=== PATIENT | female | born 1960 | race Caucasian/White ===

== ENCOUNTER → 2017-09-25 | Day surgery (SDC) | payer BC, MEDICARE ==
[~2017-09-25] MED LIST: LIDOCAINE 1% INJ-PF (10 MG/ML) 30 ML SDV ONE
--- NOTE | 2017-09-25 14:27 | RADIOLOGY REPORT (SQ) ---
EXAM DESCRIPTION: ARTHRO SHOULDER; FLUORO/NEEDLE PLACEMENT COMPLETED DATE/TIME: 09/25/2017 2:06 pm REASON FOR STUDY: BICEP STRAIN, L ARM/L SHOULDER PAIN S46.112D STRAIN OF MUSC/FASC/TEND LONG HEAD O F BICEPS, LEFT COMPARISON: None. FLUOROSCOPY TIME: 15 seconds 1 images saved to PACS. LIMITATIONS: None. PROCEDURE: Procedure, risks, benefits and alternatives explained to patient who then gave written co nsent. The left shoulder was marked and a time out was called for correct procedure verification. Po sterior entry site marked using fluoroscopic guidance. Shoulder prepped and draped using sterile aditi hnique. Local anesthesia achieved using 1% lidocaine injection. Hypodermic needle introduced into t he joint space under direct fluoroscopic visualization. Non-ionic contrast instilled to confirm intra -articular position. Dilute gadolinium solution then injected. Needle removed and entry site covered with sterile bandage. No immediate complications noted. TECHNIQUE: Digital images acquired during fluoroscopy and stored on PACS. Patient immediately take n to the MR suite for additional imaging. INJECTION LOCATION: Posterior left shoulder. CONTRAST TYPE AND AMOUNT: 1 cc Isovue 300 10 cc Prohance. IMPRESSION: SUCCESSFUL NEEDLE PLACEMENT AND INJECTION FOR LEFT SHOULDER MR ARTHROGRAM USING POSTERIO R APPROACH. COMMENT: Quality ID [id number]: Final reports for procedures using fluoroscopy that document radiation exp osure indices, or exposure time and number of fluorographic images (if radiation exposure indices are not available) TECHNICAL DOCUMENTATION: JOB ID: [id number] [email or web address] All Rights Reserved
--- NOTE | 2017-09-25 15:40 | RADIOLOGY REPORT (SQ) ---
EXAM DESCRIPTION: MRI LT UPPER JOINT WITH COMPLETED DATE/TIME: 09/25/2017 3:08 pm REASON FOR STUDY: BICEP STRAIN, L ARM/L SHOULDER PAIN S46.112D STRAIN OF MUSC/FASC/TEND LONG HEAD O F BICEPS, LEFT COMPARISON: None. TECHNIQUE: Left shoulder images acquired and stored on PACS. Oblique coronal, oblique sagittal, and axial imaging to include fat sensitive sequences as T1, water sensitive sequences as FST2/STIR, and c ontrast sensitive sequences as FST1. LIMITATIONS: Motion. FINDINGS: JOINT DISTENTION: Adequate distention for interpretation. No contrast in the subacromial bursa. BONE MARROW AND CORTEX: Subchondral cyst formation adjacent to the cuff attachment on the humeral hea d. AC JOINT: Type 2.. Mild AC joint arthropathy. GLENOHUMERAL JOINT: Intact. ROTATOR CUFF: Increased T2 signal along the articular surface of the supraspinatus. No full-thicknes s tear. Infraspinatus, teres minor and subscapularis intact. LABRUM AND BICEPS LABRAL COMPLEX: Intact. INFERIOR LABRAL COMPLEX: Intact. ADJACENT SOFT TISSUES: No masses or nodes. OTHER: No other significant finding. IMPRESSION: 1. Some limitations due to motion. No definite labral tear identified. 2. Articular surface partial-thickness tear supraspinatus. TECHNICAL DOCUMENTATION: JOB ID: [id number] [employer]- All Rights Reserved
== END ==
LOC: RAD 13:02
PROVIDERS: ATTEND Physician Assistant
PROC: BP09ZZZ Plain Radiography of Left Shoulder (ICD-10-PCS; principal; 2017-09-25)
DX: S46.112D Strain of muscle, fascia and tendon of long head of biceps, left arm, subsequent encounter (principal)
CPT/HCPCS: 73222; 73040; 77002; A9576; J3490

== ENCOUNTER → 2018-01-15 | Outpatient (CLI) | payer BC, MEDICARE ==
[2018-01-15 10:48] LABS: CHOLESTEROL 162.88 mg/dL (0-200); TRIGLYCERIDES 111 mg/dL (<150)
[2018-01-15 10:59] LABS: DIRECT LDL 70 mg/dL (<100)
[2018-01-15 11:34] LABS: THYROID STIMULATING HORMONE 0.41 uIU/mL (0.47-4.68)
[2018-01-15 18:31] LABS: FREE T4 (FREE THYROXINE) 0.84 ng/dL (0.78-2.19)
== END ==
LOC: OD 09:16
PROVIDERS: ATTEND Internal Medicine Nephrology
DX: E03.9 Hypothyroidism, unspecified (principal); E78.2 Mixed hyperlipidemia; D35.2 Benign neoplasm of pituitary gland
CPT/HCPCS: 36415; 80061; 84146; 84439; 84443

== ENCOUNTER → 2018-01-17 | Outpatient (CLI) | payer BC, MEDICARE ==
--- NOTE | 2018-01-17 12:40 | WOMENS IMAGING REPORT ---
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 LIMITATIONS: None. FINDINGS: LUMBAR SPINE: The bone mineral density (BMD) measured from L1-L4 in the AP projection correlates with a T-score of -0.8, which is normal as defined by the World Health Organization. This is stable compared to 2015 HIP: The bone mineral density (BMD) measured in the left total hip correlates with a T-score of +0.4, whic h is normal as defined by the World Health Organization. This is stable compared to 2015 IMPRESSION: 1. LUMBAR SPINE: Normal 2. HIP: Normal COMMENT: The World Health Organization defines low BMD as follows: T-score: Normal: Greater than -1.0 Osteopenia: Between -1.0 and -2.5 Osteoporosis: Less than -2.5 without fractures Established osteoporosis: Less than -2.5 with fractures In general, you may wish to consider: Diagnosis Treatment Follow-up DEXA Normal BMD Prevention 2-3 years Osteopenia Prevention/Therapy 1-2 years Osteoporosis Therapy Yearly TECHNICAL DOCUMENTATION: JOB ID: [id number] [employer]- All Rights Reserved Reading location - IP/workstation name: [email or web address]
== END ==
LOC: WI 10:17
PROVIDERS: ATTEND Physician Assistant
DX: K50.90 Crohn's disease, unspecified, without complications (principal)
CPT/HCPCS: 77080

== ENCOUNTER 2018-10-21 22:24 | Emergency (ER) | payer MEDICARE, BC ==
[2018-10-22] MEDS ORDERED: ONDANSETRON HCL INJ/PF 4 MG/2 ML SDV IV ONE (00:49)
[2018-10-22] MEDS ORDERED: NORMAL SALINE 1000 ML 1,000 ML IV ONE (00:49)
--- NOTE | 2018-10-22 01:52 | ER Document Report ---
ED General - General Chief Complaint: Nausea/Vomiting/Diarrhea Stated Complaint: SYNCOPE Time Seen by Provider: 10/22/18 00:49 Primary Care Provider: ABDELRAHMAN SIMENTAL MD [Primary Care Provider] - Follow up as needed Notes: Patient is a 58-year-old female with a past medical history of a complete colectomy, Crohn's disease, active on Humira, presents complaining of 24 hours of nausea, vomiting, and diarrhea. The patient is also had an episode in which she went from lying to standing to try to walk to the restroom and lost consciousness. This probably her to come to the emergency department for further assessment. She has history of chronic diarrhea secondary to her colectomy and Crohn's disease but denies any history of vomiting on a regular basis. She has not had fever. Notes that she has had some mild, generalized, intermittent abdominal cramping relieved by vomiting and diarrhea. No known sick contacts. She has not seen her primary care physician regarding today's concerns. TRAVEL OUTSIDE OF THE [place] IN LAST 30 DAYS: No - Related Data Allergies/Adverse Reactions: amitriptyline HCl [From Elavil] Allergy (Severe, Verified 09/29/11 15:33) restless leg bromocriptine mesylate [From Parlodel] Allergy (Severe, Verified 09/29/11 15:33) n and v codeine [Codeine] Allergy (Severe, Verified 09/29/11 15:33) itching diazepam [Diazepam] Allergy (Severe, Verified 09/29/11 15:33) mood changes metaxalone [From Skelaxin] Allergy (Severe, Verified 09/29/11 15:33) itching metoclopramide HCl [From Reglan] Allergy (Severe, Verified 09/29/11 15:33) twitching nabumetone [From Relafen] Allergy (Severe, Verified 09/29/11 15:33) abd pain promethazine HCl [From Phenergan] Allergy (Severe, Verified 09/29/11 15:33) rls sulfamethoxazole [From Septra] Allergy (Severe, Verified 09/29/11 15:33) rash and itching trazodone [Trazodone] Allergy (Severe, Verified 09/29/11 15:33) Nightmares trimethoprim [From Septra] Allergy (Severe, Verified 09/29/11 15:33) rash and itching adhesives Allergy (Severe, Uncoded 09/29/11 15:33) Blisters Past Medical History - General Information source: Patient - Social History Smoking Status: Never Smoker Frequency of alcohol use: None Drug Abuse: None Lives with: Spouse/Significant other Family History: Reviewed & Not Pertinent - Past Medical History Cardiac Medical History: Denies: Hx Coronary Artery Disease, Hx Heart Attack, Hx Hypertension Pulmonary Medical History: Reports: Hx Pneumonia - hx of Denies: Hx Asthma, Hx Bronchitis, Hx COPD Neurological Medical History: Denies: Hx Cerebrovascular Accident, Hx Seizures Musculoskeletal Medical History: Reports Hx Arthritis Past Surgical History: Reports: Hx Hysterectomy. Denies: Hx Pacemaker - Immunizations Hx Diphtheria, Pertussis, Tetanus Vaccination: No Review of Systems - Review of Systems Notes: Constitutional: Negative for fever. HENT: Negative for sore throat. Eyes: Negative for visual changes. Cardiovascular: Negative for chest pain. Positive for lightheadedness, one ep isode of syncope Respiratory: Negative for shortness of breath. Gastrointestinal: Positive for abdominal cramping, vomiting and diarrhea Genitourinary: Negative for dysuria. Musculoskeletal: Negative for back pain. Skin: Negative for rash. Neurological: Negative for headaches, weakness or numbness. 10 point ROS negative except as marked above and in HPI. Physical Exam - Vital signs Vitals: Temp Pulse Resp BP Pulse Ox 100.4 F 93 16 99/65 L 97 10/22/18 00:15 10/22/18 00:15 10/22/18 00:15 10/22/18 00:15 10/22/18 00:15 Interpretation: Hypotensive Notes: PHYSICAL EXAMINATION: GENERAL: Appears mildly unwell but in no acute distress HEAD: Atraumatic, normocephalic. EYES: Pupils equal round and reactive to light, extraocular movements intact, sclera anicteric, conjunctiva are normal. ENT: nares patent, oropharynx clear without exudates. Mild dry mucous membranes. NECK: Normal range of motion, supple without lymphadenopathy LUNGS: Breath sounds clear to auscultation bilaterally and equal. No wheezes rales or rhonchi. HEART: Regular rate and rhythm without murmurs ABDOMEN: Soft, nontender, normoactive bowel sounds. No guarding, no rebound. No masses appreciated. EXTREMITIES: Normal range of motion, no pitting or edema. No cyanosis. NEUROLOGICAL: No focal neurological deficits. Moves all extremities spontaneously and on command. PSYCH: Normal mood, normal affect. SKIN: Warm, Dry, normal turgor, no rashes or lesions noted. Course - Re-evaluation Re-evalutation: 10/22/18 01:54 Presentation of an overall well-appearing patient in no acute distress with comp laints of nausea, vomiting, diarrhea. Patient has no abdominal tenderness on exam and specifically no tenderness in the RLQ, LLQ, RUQ. Mildly dehydrated on exam. Able to tolerate oral intake here in the emergency department. Low clinical suspicion for any acute life-threatening etiology based on exam and history including acute cholecystitis, SBO, appendicitis, nephrolithiasis, or pylonephritis. CMP without evidence of acute hepatitis or significant dehydration. At this time will discharge with return precautions and follow-up recommendations. Verbal discharge instructions given a the bedside and opportunity for questions given. Medication warnings reviewed. Patient is in agreement with this plan and has verbalized understanding of return precautions and the need for primary care follow-up in the next 24-72 hours. - Vital Signs Vital signs: Temp Pulse Resp BP Pulse Ox 98.8 F 93 16 99/65 L 97 10/22/18 03:16 10/22/18 00:15 10/22/18 00:15 10/22/18 00:15 10/22/18 00:15 - Laboratory Result Diagrams: 10/22/18 01:40 10/22/18 01:40 Laboratory results interpreted by me: 10/22/18 10/22/18 01:40 01:40 WBC 11.9 H Seg Neutrophils % 87.7 H Lymphocytes % 6.2 L Absolute Neutrophils 10.5 H BUN 21 H Est GFR (Non-Af Amer) 49 L Calcium 10.4 H ALT 56 H - EKG Interpretation by Me Additional EKG results interpreted by me: 10/22/18 03:19 Sinus rhythm, rate 87. No ST elevations or depressions. QTC is 429. Discharge - Discharge Clinical Impression: Nausea vomiting and diarrhea, Dehydration Syncope Qualifiers: Syncope type: unspecified Qualified Code(s): R55 - Syncope and collapse Condition: Good Disposition: HOME, SELF-CARE Additional Instructions: Your symptoms are likely due to a viral illness and should resolve in the next several days. You can take xkks-dwy-[id number] loperamide also known as Imodium as needed for diarrhea per box instructions. Continue to stay hydrated with plenty of solution such as Gatorade or Pedialyte. You are being prescribed Zofran to take as needed for nausea and vomiting. Please return if you develop severe ab dominal pain, pass out, become unable to tolerate any oral fluids for 12 more hours, or any other symptoms that are concerning to you. You were seen today after an episode of passing out. Your EKG here is normal. At this time, we do not feel that your episode of passing out was from any life-threatening cause. This is likely secondary to dehydration from over the past several days. Please drink plenty of fluids over the next several days. Return to emergency department if you have any further episodes of syncope, headache, weakness, numbness, chest pain, or shortness of breath. Please follow up closely with your primary care physician. Referrals: ABDELRAHMAN SIMENTAL MD [Primary Care Provider] - Follow up as needed
[2018-10-22 01:53] LABS: ABSOLUTE LYMPHOCYTES (AUTO) 0.7 10^3/uL (0.5-4.7); ABSOLUTE MONOCYTES (AUTO) 0.6 10^3/uL (0.1-1.4); ABSOLUTE NEUT (AUTO) 10.5 10^3/uL (1.7-8.2); BASOPHILS % (AUTO) 0.4 % (0-2); EOSINOPHILS % (AUTO) 0.3 % (0-6); HEMATOCRIT 44.8 % (36.0-47.0); HEMOGLOBIN 15.3 g/dL (12.0-15.5); LYMPHOCYTES % (AUTO) 6.2 % (13-45); MEAN CORPUSCULAR HEMOGLOBIN 30.9 pg (27.0-33.4); MEAN CORPUSCULAR HGB CONC 34.2 g/dL (32.0-36.0); MEAN CORPUSCULAR VOLUME 90 fl (80-97); MONOCYTES % (AUTO) 5.4 % (3-13); PLATELET COUNT 252 10^3/uL (150-450); RED BLOOD COUNT 4.96 10^6/uL (3.72-5.28); RED CELL DISTRIBUTION WIDTH 12.7 % (11.5-14.0); SEGMENTED NEUTROPHILS % (AUTO) 87.7 % (42-78); TOTAL CELLS COUNTED % (AUTO) 100 %; WHITE BLOOD COUNT 11.9 10^3/uL (4.0-10.5)
[2018-10-22 02:04] LABS: ALANINE AMINOTRANSFERASE 56 U/L (9-52); ALBUMIN 4.9 g/dL (3.5-5.0); ALKALINE PHOSPHATASE 98 U/L (38-126); ANION GAP 12 (5-19); ASPARTATE AMINO TRANSFERASE 35 U/L (14-36); BILIRUBIN,DIRECT 0.2 mg/dL (0.0-0.4); BILIRUBIN,TOTAL 0.9 mg/dL (0.2-1.3); BLOOD UREA NITROGEN 21 mg/dL (7-20); CALCIUM 10.4 mg/dL (8.4-10.2); CARBON DIOXIDE 25 mmol/L (22-30); CHLORIDE 104 mmol/L (98-107); GLUCOSE 108 mg/dL (75-110); POTASSIUM 4.4 mmol/L (3.6-5.0); SODIUM 140.7 mmol/L (137-145); TOTAL PROTEIN 8.2 g/dL (6.3-8.2)
[2018-10-22] MEDS ORDERED: ACETAMINOPHEN 325 MG TABLET PO ONE (03:09)
[2018-10-22] MEDS ORDERED: ONDANSETRON ODT 4 MG TAB (6 TAB/ER DISP) PO PRN (03:20)
[2018-10-22 04:04] VITALS: BP 103/55
--- NOTE | 2018-10-22 06:31 | EKG REPORT ---
SEVERITY:- BORDERLINE ECG - SINUS RHYTHM BORDERLINE T ABNORMALITIES, INFERIOR LEADS : Confirmed by: Jaden Marinelli MD 22-Oct-2018 06:30:42
== END 2018-10-22 04:13 | disposition home or self-care (01) ==
LOC: ER 22:24
DX: K50.90 Crohn's disease, unspecified, without complications (principal); Z79.899 Other long term (current) drug therapy; E86.0 Dehydration; R11.2 Nausea with vomiting, unspecified; R19.7 Diarrhea, unspecified; R55 Syncope and collapse; R10.84 Generalized abdominal pain; Z90.49 Acquired absence of other specified parts of digestive tract; Z88.8 Allergy status to other drugs, medicaments and biological substances; Z88.5 Allergy status to narcotic agent; Z88.1 Allergy status to other antibiotic agents; Z91.048 Other nonmedicinal substance allergy status
CPT/HCPCS: 93005; 99284; 96361; 96374; 36415; 85025; 80053; 93010; A9270 ×2; J2405; J7030

== ENCOUNTER → 2019-08-01 | Outpatient (CLI) | payer BC, MEDICARE ==
--- NOTE | 2019-08-01 11:49 | RADIOLOGY REPORT (SQ) ---
EXAM DESCRIPTION: MOISÉS SWALLOW COMPLETED DATE/TIME: 08/01/2019 9:25 am REASON FOR STUDY: DYSPHAGIA, PHARYNGOESOPHAGEAL PHASE R13.14 DYSPHAGIA, PHARYNGOESOPHAGEAL PHASE COMPARISON: None. TECHNIQUE: Videofluoroscopic swallowing examination was performed in conjunction with speech patholo gy. Videofluoroscopic imaging was obtained and reviewed and these are the findings: RADIATION DOSE: Fluoro time 1.16 minutes 1 images saved to PACS. LIMITATIONS: None FINDINGS: The patient was brought into the fluoro room and placed upright on a modified barium swall ow chair. The patient was then given multiple consistencies mixed with barium to swallow under live fluoroscopic video guidance. According to the Speech Pathologist there was no penetration or aspirat ion. Please refer to the speech pathology report for further details. IMPRESSION: NO EVIDENCE OF PENETRATION OR ASPIRATION. PLEASE SEE SPEECH PATHOLOGIST REPORT FOR OTHER FINDINGS AND RECOMMENDATIONS. COMMENT: None Quality ID [id number]: Final reports for procedures using fluoroscopy that document radiation exposure sukumar atilio, or exposure time and number of fluorographic images (if radiation exposure indices are not avail able) TECHNICAL DOCUMENTATION: JOB ID: [id number] [email or web address]- All Rights Reserved Reading location - IP/workstation name: [email or web address] [id number]
--- NOTE | 2019-08-01 14:43 | ST Modified Barium Swallow ---
Recommendation - Recommendations Recommendations: No oral or pharyngeal swallow deficits observed. Continue medical management. Medical Diagnoses - Medical Diagnoses Medical Diagnosis Description & ICD-10 Code(s): cough, dysphagia Other Medical Diagnoses/Co-Morbidities: per patient report: reflux, Crohn's, obstructive sleep apnea, tracheostomy - ICD-10 Tx Diagnosis Coding (1) Cough ICD-10 Code(s): R05 - COUGH (2) Dysphagia, pharyngoesophageal phase ICD-10 Code(s): R13.14 - DYSPHAGIA, PHARYNGOESOPHAGEAL PHASE ST Modified Barium Swallow - General Date: 08/01/19 Referring Physician: Dr. Nolan Date of Onset: 07/28/10 - approximate onset date Reason for Referral: "questions of aspiration/dysphagia" - History -: Medical - Patient acted as her own historian. Patient reports that she has noticed swalloiwng difficulty since her tracheostomy surgery 9 years ago. She has chronic trach for obstructive sleep apnea. Patient reports that she keeps trach capped during the day and uses at night. She also reports having increased difficulty with swallowing recently. Patient states that she had a prior MBSS approximately 1 year ago in [place] with no abnormal findings. She reports that "after I eat I'm coughing". She also states that she notices having difficulty when she is bending over, she feels things are coming back up. Does have history of hiatal hernia, patient had a barium swallow which she states was "fine". Medications: per patient report: baclofen, acyclovir, esomeprazole, synthroid, metorolol, humira, monthly allergy shot, tretinion, atorvastatin, clobetasol, premarin cream, diclofenac Allergies: amitriptyline, bromocriptine, codeine, diazepam, metaxalone, metoclopramide, - Functional Status Prior Functional Status: INDEPENDENT: feeding - independent Current Functional Limitations: feeding - difficulty swallowing - Subjective Patient/caregiver goal(s): r/o aspiration, r/o struct. abnormality Cognitive-Linguistic Function: WNL Speech Intelligibility: WNL Current Nutritional Means: PO Current PO diet: Regular Current symptoms: Coughing Pain: Patient reports, 3/5 - head ache - Objective Assessment: Upright, Left Lateral - Food Trials Used Food trials used: Thin liquids, Pureed, Regular The patient: Was Able to Self Feed - Oral-Motor Skills Dentition: Full Velo-pharyngeal function: Unremarkable Laryngeal Function: clear voicing - Assessment Oral prep: Normal Labial closure: Adequate Leakage: None Mastication: Adequate Lingual Movement: Normal Oral stage: Normal for this Procedure - Pharyngeal Stage Initiation of Pharyngeal Stage Reflex: Normal Decreased laryngeal elevation: No Reduced Velopharyngeal Closure: no Reduced pressure generation: No reduced tongue-based retraction: No Pre-swallow pooling in valleculae: None Pre-Swallow pooling in pyriforms: None Reduced Thyro-Hyoid approximation: No Reduced epiglottic excursion: No Reduced pharyngeal peristalsis/contraction: No Post-swallow residulas vallecular: None Post-Swallow residuals in pyriforms: None - Fall Risk Assessment Medications/Conditions that increase fall risks include: Antidepressants, sedatives, anti-arrhythmic, diuretic, benzodiazipenes, neuroleptics. BP regulation problems, cardiac problems, balance or gait deficits, neurological problems. Is patient considered at risk for falls: no Fall Risk Actions Taken: No action needed - Behavioral Observations During evaluation process patient: was pleasant, was cooperative, able to answer questions, provided medical history - Treatment / Educational Needs: Treatment/Education Needs: Treatment consisted of patient education on the role of the Speech Pathologist. Patient's plan of care and golas were communicated as well as scheduling and attendance policies. Recommendations for initial home program were shared. Patient demonstrated understanding and verbalized agreement. - Impression/Summary Laryngeal Penetration: Flash - on subsequent straw sips of thin liquid only Tracheal Aspiration: no Patient presents with: Normal swallow at eval Risk of Aspiration: Minimal Evaluation and Findings: No oral or pharyngeal deficits seen - Recommendations Dysphagia therapy with SCALLOP DREDGER: no Reflux Precautions: Taught to Patient Recommended techniques: Fully Upright During Meal Information, Precautions and Recommendations: Patient (Written), Patient (Verbal) - Plan of Care Strategies to optimize patient understanding include:: ongoing assessment of educational needs, implementation of educational strategies, and re-education. - - -: Thank you for the opportunity to work with this patient and his/her family. Should you have any questions about this patient's plan or progress, I can be reached at [phone].
== END ==
LOC: RAD 08:07
PROVIDERS: ATTEND Otolaryngology
DX: R13.14 Dysphagia, pharyngoesophageal phase (principal); R05 Cough
CPT/HCPCS: 74230

== ENCOUNTER 2019-10-06 14:51 | Emergency (ER) | payer BC, MEDICARE ==
[2019-10-06 15:14] VITALS: BP 127/77
--- NOTE | 2019-10-06 15:35 | ER Document Report ---
ED Medical Screen (RME) - General Chief Complaint: Thigh Pain Stated Complaint: THIGH PAIN/POSSIBLE CELLULITIS Time Seen by Provider: 10/06/19 15:28 Primary Care Provider: DIAZ MURRIETA MD [Primary Care Provider] - Follow up as needed Mode of Arrival: Ambulatory Information source: Patient Notes: Patient presents complaining of a reddened area to the left thigh. Patient is concerned about possible cellulitis. Patient denies any fever or history of MRSA. Patient does state that she takes Humira. hx: Crohn's, hypothyroidism, pituitary tumor, tracheostomy I have greeted and performed a rapid initial assessment of this patient. A comprehensive ED assessment and evaluation of the patient, analysis of test results and completion of the medical decision making process will be conducted by additional ED providers. TRAVEL OUTSIDE OF THE [place] IN LAST 30 DAYS: No - Related Data Allergies/Adverse Reactions: amitriptyline HCl [From Elavil] Allergy (Severe, Verified 09/29/11 15:33) restless leg bromocriptine mesylate [From Parlodel] Allergy (Severe, Verified 09/29/11 15:33) n and v codeine [Codeine] Allergy (Severe, Verified 09/29/11 15:33) itching diazepam [Diazepam] Allergy (Severe, Verified 09/29/11 15:33) mood changes metaxalone [From Skelaxin] Allergy (Severe, Verified 09/29/11 15:33) itching metoclopramide HCl [From Reglan] Allergy (Severe, Verified 09/29/11 15:33) twitching nabumetone [From Relafen] Allergy (Severe, Verified 09/29/11 15:33) abd pain promethazine HCl [From Phenergan] Allergy (Severe, Verified 09/29/11 15:33) rls sulfamethoxazole [From Septra] Allergy (Severe, Verified 09/29/11 15:33) rash and itching trazodone [Trazodone] Allergy (Severe, Verified 09/29/11 15:33) Nightmares trimethoprim [From Septra] Allergy (Severe, Verified 09/29/11 15:33) rash and itching gabapentin Allergy (Verified 10/06/19 15:30) levofloxacin [From Levaquin] Allergy (Verified 10/06/19 15:30) methylprednisolone [From Medrol] Allergy (Verified 10/06/19 15:30) adhesives Allergy (Severe, Uncoded 09/29/11 15:33) Blisters Past Medical History - Past Medical History Cardiac Medical History: Denies: Hx Coronary Artery Disease, Hx Heart Attack, Hx Hypertension Pulmonary Medical History: Reports: Hx Pneumonia - hx of Denies: Hx Asthma, Hx Bronchitis, Hx COPD Neurological Medical History: Denies: Hx Cerebrovascular Accident, Hx Seizures Renal/ Medical History: Denies: Hx Peritoneal Dialysis Musculoskeltal Medical History: Reports Hx Arthritis Past Surgical History: Reports: Hx Hysterectomy. Denies: Hx Pacemaker - Immunizations Hx Diphtheria, Pertussis, Tetanus Vaccination: No Physical Exam - Vital signs Vitals: Temp Pulse Resp BP Pulse Ox 98.4 F 83 16 127/77 H 96 10/06/19 15:11 10/06/19 15:11 10/06/19 15:11 10/06/19 15:11 10/06/19 15:11 - General General appearance: Appears well, Alert Notes: Erythema to the anterior aspect of the proximal left thigh Course - Vital Signs Vital signs: Temp Pulse Resp BP Pulse Ox 98.4 F 83 16 127/77 H 96 10/06/19 15:11 10/06/19 15:11 10/06/19 15:11 10/06/19 15:11 10/06/19 15:11 Doctor's Discharge - Discharge Referrals: DIAZ MURRIETA MD [Primary Care Provider] - Follow up as needed
[2019-10-06 16:19] LABS: ABSOLUTE BASOPHILS # (AUTO) 0.1 10^3/uL (0.0-0.2); ABSOLUTE EOSINOPHILS # (AUTO) 0.3 10^3/uL (0.0-0.6); ABSOLUTE LYMPHOCYTES (AUTO) 2.1 10^3/uL (0.5-4.7); ABSOLUTE MONOCYTES (AUTO) 0.8 10^3/uL (0.1-1.4); ABSOLUTE NEUT (AUTO) 5.9 10^3/uL (1.7-8.2); BASOPHILS % (AUTO) 1.4 % (0-2); EOSINOPHILS % (AUTO) 3.8 % (0-6); HEMATOCRIT 38.5 % (36.0-47.0); HEMOGLOBIN 13.7 g/dL (12.0-15.5); LYMPHOCYTES % (AUTO) 22.5 % (13-45); MEAN CORPUSCULAR HEMOGLOBIN 31.7 pg (27.0-33.4); MEAN CORPUSCULAR HGB CONC 35.6 g/dL (32.0-36.0); MEAN CORPUSCULAR VOLUME 89 fl (80-97); MONOCYTES % (AUTO) 8.2 % (3-13); PLATELET COUNT 261 10^3/uL (150-450); RED BLOOD COUNT 4.33 10^6/uL (3.72-5.28); RED CELL DISTRIBUTION WIDTH 12.4 % (11.5-14.0); SEGMENTED NEUTROPHILS % (AUTO) 64.1 % (42-78); TOTAL CELLS COUNTED % (AUTO) 100 %; WHITE BLOOD COUNT 9.2 10^3/uL (4.0-10.5)
[2019-10-06 16:23] LABS: ANION GAP 10 (5-19); BLOOD UREA NITROGEN 18 mg/dL (7-20); CALCIUM 9.7 mg/dL (8.4-10.2); CARBON DIOXIDE 27 mmol/L (22-30); CHLORIDE 102 mmol/L (98-107); GLUCOSE 119 mg/dL (75-110); POTASSIUM 3.8 mmol/L (3.6-5.0)
--- NOTE | 2019-10-06 16:59 | ER Document Report ---
ED General - General Chief Complaint: Skin Problem Stated Complaint: THIGH PAIN/POSSIBLE CELLULITIS Time Seen by Provider: 10/06/19 15:28 Primary Care Provider: ABDELRAHMAN SIMENTAL MD [Primary Care Provider] - Follow up in 3-5 days DIAZ MURRIETA MD [NO LOCAL MD] - Follow up as needed Mode of Arrival: Ambulatory Information source: Patient Notes: This 58-year-old female presents emergency department with reports of an abscess to her left thigh. Patient reports for the past 2 months she has had episodes of blisters that pop up randomly on her body. She reports this is happened at least 5 times. She reports she will usually scratch them and they will go away. She reports that on Monday she noticed one on her left thigh. She reports she scratched it as usual. This time the blister turned red became swollen and is painful. She denies history of MRSA. She denies any recent new medications. She reports she has been treated with Humira for years. Denies other symptoms such as fever vomiting diarrhea. Patient reports she placed warm compresses on the area. TRAVEL OUTSIDE OF THE [place] IN LAST 30 DAYS: No - HPI Onset: Other - Monday Onset/Duration: Persistent Quality of pain: Achy Associated symptoms: None Exacerbated by: Denies Relieved by: Denies Similar symptoms previously: No Recently seen / treated by doctor: No - Related Data Allergies/Adverse Reactions: amitriptyline HCl [From Elavil] Allergy (Severe, Verified 09/29/11 15:33) restless leg bromocriptine mesylate [From Parlodel] Allergy (Severe, Verified 09/29/11 15:33) n and v codeine [Codeine] Allergy (Severe, Verified 09/29/11 15:33) itching diazepam [Diazepam] Allergy (Severe, Verified 09/29/11 15:33) mood changes metaxalone [From Skelaxin] Allergy (Severe, Verified 09/29/11 15:33) itching metoclopramide HCl [From Reglan] Allergy (Severe, Verified 09/29/11 15:33) twitching nabumetone [From Relafen] Allergy (Severe, Verified 09/29/11 15:33) abd pain promethazine HCl [From Phenergan] Allergy (Severe, Verified 09/29/11 15:33) rls sulfamethoxazole [From Septra] Allergy (Severe, Verified 09/29/11 15:33) rash and itching trazodone [Trazodone] Allergy (Severe, Verified 09/29/11 15:33) Nightmares trimethoprim [From Septra] Allergy (Severe, Verified 09/29/11 15:33) rash and itching gabapentin Allergy (Verified 10/06/19 15:30) levofloxacin [From Levaquin] Allergy (Verified 10/06/19 15:30) methylprednisolone [From Medrol] Allergy (Verified 10/06/19 15:30) adhesives Allergy (Severe, Uncoded 09/29/11 15:33) Blisters Past Medical History - General Information source: Patient Last Menstrual Period: Hysterectomy - Social History Smoking Status: Never Smoker Cigarette use (# per day): No Frequency of alcohol use: None Drug Abuse: None Lives with: Family Family History: Reviewed & Not Pertinent Patient has suicidal ideation: No Patient has homicidal ideation: No - Past Medical History Cardiac Medical History: Denies: Hx Coronary Artery Disease, Hx Heart Attack, Hx Hypertension Pulmonary Medical History: Reports: Hx Pneumonia - hx of, Hx Sleep Apnea Denies: Hx Asthma, Hx Bronchitis, Hx COPD Neurological Medical History: Reports: Hx Migraine. Denies: Hx Cerebrovascular Accident, Hx Seizures Renal/ Medical History: Denies: Hx Peritoneal Dialysis Malignancy Medical History: Reports: Other - pituitary tumor GI Medical History: Reports: Hx Crohn's Disease, Hx Gastroesophageal Reflux Disease Musculoskeletal Medical History: Reports Hx Arthritis Past Surgical History: Reports: Hx Abdominal Surgery, Hx Cholecystectomy, Hx Hysterectomy, Other - trach. Denies: Hx Pacemaker - Immunizations Hx Diphtheria, Pertussis, Tetanus Vaccination: No Review of Systems - Review of Systems Notes: Review HPI for review of systems., All other systems negative Physical Exam - Vital signs Vitals: Temp Pulse Resp BP Pulse Ox 98.4 F 83 16 127/77 H 96 10/06/19 15:11 10/06/19 15:11 10/06/19 15:11 10/06/19 15:11 10/06/19 15:11 - General General appearance: Appears well, Alert - HEENT Head: Normocephalic Eyes: Normal Neck: Supple - Respiratory Respiratory status: No respiratory distress Breath sounds: Normal - Cardiovascular Rhythm: Regular - Abdominal Inspection: Normal Tenderness: Nontender - Extremities General upper extremity: Normal ROM, Normal strength General lower extremity: Normal ROM, Normal strength - Neurological Neuro grossly intact: Yes Cognition: Normal Orientation: AAOx4 Mcnabb Coma Scale Eye Opening: Spontaneous Mcnabb Coma Scale Verbal: Oriented Ar Coma Scale Motor: Obeys Commands Mcnabb Coma Scale Total: 15 Speech: Normal - Psychological Associated symptoms: Normal affect, Normal mood - Skin Skin Temperature: Warm Skin Moisture: Dry Skin Color: Normal Skin irregularity: Abscess Location of irregularity: Extremities - Left upper thigh Character of irregularity: Erythematous Irregularity with: Tenderness, Induration Course - Re-evaluation Re-evalutation: 10/06/19 18:00 Patient presents with an abscess to her left upper thigh. Describes heavy blist ers for the past 2 months approximately 5 times in different locations of her body. She reports this 1 started on Monday. She scratched it and now is developed into an abscess. I&D was completed. Patient was placed on Keflex. She denies allergies to this medication. She was also instructed on wound culture sent. She was instructed on the importance of monitoring site. The area was marked with a surgical marker. She was instructed if the redness increases goes beyond the boundary lines to return to the emergency department. She was also instructed to return for increasing pain fever or concerns. She was instructed to follow-up with Dr. Simental to discuss these blisters. She verbalized understanding to all instructions - Vital Signs Vital signs: Temp Pulse Resp BP Pulse Ox 98.4 F 83 16 127/77 H 96 10/06/19 15:11 10/06/19 15:11 10/06/19 15:11 10/06/19 15:11 10/06/19 15:11 - Laboratory Result Diagrams: 10/06/19 15:50 10/06/19 15:50 Laboratory results interpreted by me: 10/06/19 15:50 Glucose 119 H Procedures - Incision and Drainage Left Thigh Type: Simple Anesthetic type: 1% Lidocaine mL's of anesthetic: 2 Blade size: 11 I&D procedure: Shurclens applied Incision Method: Incision made by scalpel Amount/type of drainage: Very small bloody drainage Notes: 10/06/19 18:02 T shaped incision made. Area probed. Very little bloody drainage obtained. Wound culture sent Discharge - Discharge Clinical Impression: Abscess of left thigh Condition: Stable Disposition: HOME, SELF-CARE Instructions: Abscess ([facility]), Cephalexin ([facility]), Post Incision and Drainage Additional Instructions: *You have been treated for an abscess with incision and drainage *Take medication as prescribed- cephalexin *Monitor the site for signs of increasing infection such as increasing pain, redness, swelling, warmth *Keep the site clean as discussed *Follow up with Dr Simental this week for recheck *Return to ED for signs of increasing infection, worsening condition,concerns, changes, needs Prescriptions: Cephalexin Monohydrate [Keflex 500 mg Capsule] 500 mg PO QID #20 capsule Referrals: DIAZ MURRIETA MD [NO LOCAL MD] - Follow up as needed ABDELRAHMAN SIMENTAL MD [Primary Care Provider] - Follow up in 3-5 days
[2019-10-06] MEDS ORDERED: CEPHALEXIN 500 MG CAPSULE PO ONE (17:29)
== END 2019-10-06 17:47 | disposition home or self-care (01) ==
LOC: ER 14:51
DX: L02.416 Cutaneous abscess of left lower limb (principal); K50.90 Crohn's disease, unspecified, without complications; Z79.899 Other long term (current) drug therapy; Z88.8 Allergy status to other drugs, medicaments and biological substances; Z88.6 Allergy status to analgesic agent; Z88.5 Allergy status to narcotic agent; Z88.1 Allergy status to other antibiotic agents; Z91.048 Other nonmedicinal substance allergy status
CPT/HCPCS: 36415; 80048; 85025; 87070; 87077; 87186; 87205; 99283

== ENCOUNTER 2019-10-08 13:13 | Emergency (ER) | payer BC, MEDICARE ==
--- NOTE | 2019-10-08 14:13 | ER Document Report ---
ED Medical Screen (RME) - General Chief Complaint: Thigh Pain Stated Complaint: LEFT THIGH PAIN, SWELLING Time Seen by Provider: 10/08/19 14:10 Primary Care Provider: ABDELRAHMAN SIMENTAL MD [Primary Care Provider] - Follow up as needed Notes: 58-year-old female presents with worsening cellulitis to her left thigh. Patient states she was seen on Monday and had an I&D done to the abscess and was placed on Keflex. Area was marked with surgical marker. Patient states she tried to get in with her primary care doctor today but everywhere was busy so she came back to the ER. Erythema spread past marked lines noted to left upper thigh. Patient states she is on Humira. I have greeted and performed a rapid initial assessment of this patient. A comprehensive ED assessment and evaluation of the patient, analysis of test results and completion of the medical decision making process with be conducted by additional ED providers. TRAVEL OUTSIDE OF THE [place] IN LAST 30 DAYS: No - Related Data Allergies/Adverse Reactions: amitriptyline HCl [From Elavil] Allergy (Severe, Verified 09/29/11 15:33) restless leg bromocriptine mesylate [From Parlodel] Allergy (Severe, Verified 09/29/11 15:33) n and v codeine [Codeine] Allergy (Severe, Verified 09/29/11 15:33) itching diazepam [Diazepam] Allergy (Severe, Verified 09/29/11 15:33) mood changes metaxalone [From Skelaxin] Allergy (Severe, Verified 09/29/11 15:33) itching metoclopramide HCl [From Reglan] Allergy (Severe, Verified 09/29/11 15:33) twitching nabumetone [From Relafen] Allergy (Severe, Verified 09/29/11 15:33) abd pain promethazine HCl [From Phenergan] Allergy (Severe, Verified 09/29/11 15:33) rls sulfamethoxazole [From Septra] Allergy (Severe, Verified 09/29/11 15:33) rash and itching trazodone [Trazodone] Allergy (Severe, Verified 09/29/11 15:33) Nightmares trimethoprim [From Septra] Allergy (Severe, Verified 09/29/11 15:33) rash and itching gabapentin Allergy (Verified 10/06/19 15:30) levofloxacin [From Levaquin] Allergy (Verified 10/06/19 15:30) methylprednisolone [From Medrol] Allergy (Verified 10/06/19 15:30) adhesives Allergy (Severe, Uncoded 09/29/11 15:33) Blisters Past Medical History - Past Medical History Cardiac Medical History: Denies: Hx Coronary Artery Disease, Hx Heart Attack, Hx Hypertension Pulmonary Medical History: Reports: Hx Pneumonia - hx of, Hx Sleep Apnea Denies: Hx Asthma, Hx Bronchitis, Hx COPD Neurological Medical History: Reports: Hx Migraine. Denies: Hx Cerebrovascular Accident, Hx Seizures Renal/ Medical History: Denies: Hx Peritoneal Dialysis GI Medical History: Reports: Hx Crohn's Disease, Hx Gastroesophageal Reflux Disease Musculoskeltal Medical History: Reports Hx Arthritis Past Surgical History: Reports: Hx Abdominal Surgery, Hx Cholecystectomy, Hx Hysterectomy, Other - trach. Denies: Hx Pacemaker - Immunizations Hx Diphtheria, Pertussis, Tetanus Vaccination: No Physical Exam - Vital signs Vitals: Temp Pulse Resp BP Pulse Ox 98.9 F 87 16 117/74 95 10/08/19 14:05 10/08/19 14:05 10/08/19 14:05 10/08/19 14:05 10/08/19 14:05 Course - Vital Signs Vital signs: Temp Pulse Resp BP Pulse Ox 98.9 F 87 16 117/74 95 10/08/19 14:05 10/08/19 14:05 10/08/19 14:05 10/08/19 14:05 10/08/19 14:05 Doctor's Discharge - Discharge Referrals: ABDELRAHMAN SIMENTAL MD [Primary Care Provider] - Follow up as needed
[2019-10-08 15:17] LABS: ABSOLUTE BASOPHILS # (AUTO) 0.1 10^3/uL (0.0-0.2); ABSOLUTE EOSINOPHILS # (AUTO) 0.3 10^3/uL (0.0-0.6); ABSOLUTE LYMPHOCYTES (AUTO) 1.6 10^3/uL (0.5-4.7); ABSOLUTE MONOCYTES (AUTO) 0.6 10^3/uL (0.1-1.4); ABSOLUTE NEUT (AUTO) 6.6 10^3/uL (1.7-8.2); BASOPHILS % (AUTO) 0.9 % (0-2); EOSINOPHILS % (AUTO) 3.2 % (0-6); HEMATOCRIT 38.4 % (36.0-47.0); HEMOGLOBIN 13.3 g/dL (12.0-15.5); LYMPHOCYTES % (AUTO) 17.5 % (13-45); MEAN CORPUSCULAR HEMOGLOBIN 31.1 pg (27.0-33.4); MEAN CORPUSCULAR HGB CONC 34.8 g/dL (32.0-36.0); MEAN CORPUSCULAR VOLUME 90 fl (80-97); MONOCYTES % (AUTO) 6.4 % (3-13); PLATELET COUNT 266 10^3/uL (150-450); RED BLOOD COUNT 4.29 10^6/uL (3.72-5.28); RED CELL DISTRIBUTION WIDTH 12.3 % (11.5-14.0); TOTAL CELLS COUNTED % (AUTO) 100 %; WHITE BLOOD COUNT 9.2 10^3/uL (4.0-10.5)
[2019-10-08 15:36] LABS: ALBUMIN 4.3 g/dL (3.5-5.0); ALKALINE PHOSPHATASE 78 U/L (38-126); ANION GAP 7 (5-19); ASPARTATE AMINO TRANSFERASE 27 U/L (14-36); BILIRUBIN,TOTAL 0.5 mg/dL (0.2-1.3); BLOOD UREA NITROGEN 18 mg/dL (7-20); CALCIUM 9.7 mg/dL (8.4-10.2); CARBON DIOXIDE 31 mmol/L (22-30); CHLORIDE 104 mmol/L (98-107); GLUCOSE 126 mg/dL (75-110); POTASSIUM 4.2 mmol/L (3.6-5.0); TOTAL PROTEIN 7.6 g/dL (6.3-8.2)
[2019-10-08] MEDS ORDERED: CLINDAMYCIN 900 MG/D5W RTU 900 MG/50 ML RTUPB IV ONE (16:21)
--- NOTE | 2019-10-08 16:36 | ER Document Report ---
ED General - General Chief Complaint: Thigh Pain Stated Complaint: LEFT THIGH PAIN, SWELLING Time Seen by Provider: 10/08/19 14:10 Primary Care Provider: ABDELRAHMAN SIMENTAL MD [Primary Care Provider] - Follow up in 3-5 days Notes: 58-year-old female presents with worsening cellulitis to her left thigh. Patient states she was seen on Monday and had an I&D done to the abscess and was placed on Keflex. Area was marked with surgical marker. Pt states redness has spread past marked area and she was told to come back to ER if this happened. Patient states she tried to get in with her primary care doctor today but e verywhere was busy so she came back to the ER. Patient states she is on Humira. Pt denies fever or having this occurring previously. Denies history of diabetes. TRAVEL OUTSIDE OF THE [place] IN LAST 30 DAYS: No - Related Data Allergies/Adverse Reactions: amitriptyline HCl [From Elavil] Allergy (Severe, Verified 09/29/11 15:33) restless leg bromocriptine mesylate [From Parlodel] Allergy (Severe, Verified 09/29/11 15:33) n and v codeine [Codeine] Allergy (Severe, Verified 09/29/11 15:33) itching diazepam [Diazepam] Allergy (Severe, Verified 09/29/11 15:33) mood changes metaxalone [From Skelaxin] Allergy (Severe, Verified 09/29/11 15:33) itching metoclopramide HCl [From Reglan] Allergy (Severe, Verified 09/29/11 15:33) twitching nabumetone [From Relafen] Allergy (Severe, Verified 09/29/11 15:33) abd pain promethazine HCl [From Phenergan] Allergy (Severe, Verified 09/29/11 15:33) rls sulfamethoxazole [From Septra] Allergy (Severe, Verified 09/29/11 15:33) rash and itching trazodone [Trazodone] Allergy (Severe, Verified 09/29/11 15:33) Nightmares trimethoprim [From Septra] Allergy (Severe, Verified 09/29/11 15:33) rash and itching gabapentin Allergy (Verified 10/06/19 15:30) levofloxacin [From Levaquin] Allergy (Verified 10/06/19 15:30) methylprednisolone [From Medrol] Allergy (Verified 10/06/19 15:30) adhesives Allergy (Severe, Uncoded 09/29/11 15:33) Blisters Past Medical History - General Information source: Patient - Social History Smoking Status: Unknown if Ever Smoked Family History: Reviewed & Not Pertinent - Past Medical History Cardiac Medical History: Denies: Hx Coronary Artery Disease, Hx Heart Attack, Hx Hypertension Pulmonary Medical History: Reports: Hx Pneumonia - hx of, Hx Sleep Apnea Denies: Hx Asthma, Hx Bronchitis, Hx COPD Neurological Medical History: Reports: Hx Migraine. Denies: Hx Cerebrovascular Accident, Hx Seizures Renal/ Medical History: Denies: Hx Peritoneal Dialysis GI Medical History: Reports: Hx Crohn's Disease, Hx Gastroesophageal Reflux Disease Musculoskeletal Medical History: Reports Hx Arthritis Past Surgical History: Reports: Hx Abdominal Surgery, Hx Cholecystectomy, Hx Hysterectomy, Other - trach. Denies: Hx Pacemaker - Immunizations Hx Diphtheria, Pertussis, Tetanus Vaccination: No Review of Systems - Review of Systems Notes: Constitutional: Negative for fever. HENT: Negative for sore throat. Eyes: Negative for visual changes. Cardiovascular: Negative for chest pain. Respiratory: Negative for shortness of breath. Gastrointestinal: Negative for abdominal pain, vomiting or diarrhea. Genitourinary: Negative for dysuria. Musculoskeletal: Positive for left thigh pain. Negative for back pain. Skin: Positive for worsening redness. Negative for rash. Neurological: Negative for headaches, weakness or numbness. 10 point ROS negative except as marked above and in HPI. Physical Exam - Vital signs Vitals: Temp Pulse Resp BP Pulse Ox 98.9 F 87 16 117/74 95 10/08/19 14:05 10/08/19 14:05 10/08/19 14:05 10/08/19 14:05 10/08/19 14:05 - Notes Notes: GENERAL: Well-appearing, well-nourished and in no acute distress. HEAD: Atraumatic, normocephalic. EYES: Extraocular movements intact, sclera anicteric, conjunctiva are normal. NECK: Normal range of motion, supple without lymphadenopathy or JVD. EXTREMITIES: Erythema spread past marked lines noted to left upper thigh. Normal range of motion, no pitting or edema. No clubbing or cyanosis. NEUROLOGICAL: Cranial nerves II through XII grossly intact. Normal speech, normal gait. PSYCH: Normal mood, normal affect. SKIN: Warm, Dry, normal turgor, no rashes or lesions noted. Course - Re-evaluation Re-evalutation: 10/08/19 nontoxic, well-appearing female presents for worsening cellulitis. Patient had an abscess to her left thigh which was I&D on Monday. Wound culture at that time grew MRSA which was resistant to cephalosporins. Patient was originally placed on Keflex. Patient's wound culture is susceptible to clindamycin and Bactrim. CBC shows no leukocytosis. Lactic is 0.9. Patient is afebrile. Patient given IV dose of clindamycin and placed on clindamycin p.o. Strict return precautions given. Area was marked with surgical marker. Patient voices understanding and agrees with plan of care. - Vital Signs Vital signs: Temp Pulse Resp BP Pulse Ox 97.9 F 75 18 122/68 99 10/08/19 17:46 10/08/19 17:46 10/08/19 17:46 10/08/19 17:46 10/08/19 17:46 - Laboratory Result Diagrams: 10/08/19 14:45 10/08/19 14:45 Laboratory results interpreted by me: 10/08/19 14:45 Carbon Dioxide 31 H Glucose 126 H Discharge - Discharge Clinical Impression: Cellulitis of left thigh Condition: Stable Disposition: HOME, SELF-CARE Instructions: Cellulitis ([facility]), MRSA Cellulitis ([facility]) Additional Instructions: Your wound culture grew MRSA which was susceptible for clindamycin. You received an IV dose of clindamycin today. Please start oral clindamycin tomorrow and finish all doses even if you feel better. Return immediately to ER if you start having any worsening symptoms, including worsening redness, fever, increased swelling/pain, chest pain, shortness of breath, or any other symptoms that are concerning to you. Prescriptions: Clindamycin HCl 300 mg PO TID #30 capsule Forms: Return to Work Referrals: ABDELRAHMAN SIMENTAL MD [Primary Care Provider] - Follow up in 3-5 days
[2019-10-08 17:47] VITALS: BP 122/68
== END 2019-10-08 17:53 | disposition home or self-care (01) ==
LOC: ER 13:13
DX: L03.116 Cellulitis of left lower limb (principal); L02.416 Cutaneous abscess of left lower limb; B95.62 Methicillin resistant Staphylococcus aureus infection as the cause of diseases classified elsewhere; Z16.19 Resistance to other specified beta lactam antibiotics; Z98.890 Other specified postprocedural states; Z88.8 Allergy status to other drugs, medicaments and biological substances; Z88.6 Allergy status to analgesic agent; Z88.5 Allergy status to narcotic agent; Z88.1 Allergy status to other antibiotic agents; Z91.048 Other nonmedicinal substance allergy status
CPT/HCPCS: 36415; 87040; 83605; 85025; 80053; J3490